=== PATIENT | female | born 1955 | race Caucasian/White ===

== ENCOUNTER 2017-06-28 16:26 | Emergency (ER) | payer SELFPAY ==
[2017-06-28] MEDS ORDERED: NORCO 5/325 MG PO ONE (17:24)
--- NOTE | 2017-06-28 17:24 | ERPHSYRPT ---
- History of Present Illness Source: patient Exam Limitations: no limitations Patient Subjective Stated Complaint: patient states four weeks ago she passed out and came to the er. states they did cpr on her for 30 minutes. she then was transferred to [facility] and had a pacemaker put in. denies having a heart attack. for one week now has had mid back pain. is taking ibuprophen four times a day without relief. Triage Nursing Assessment: ambulated to room without difficulty. skin w/d, color normal, resp nonlabored. no edema noted. no injury noted to back and patient denies any injury a week ago. does state however that "i took a spill in my bathtub last night and don't know if that has anything to do with it". Timing/Duration: week(s) (1 week) Severity: moderate Modifying Factors: Improves With: movement. Worsens With: eating, immobilization, medication, rest, acetaminophen, ibuprofen, nothing Associated Symptoms: other (pain posterior backthoracic region for one week), No nausea, No vomiting, No abdominal pain, No shortness of breath, No heartburn , No diaphoresis, No cough, No chills, No chest pain, No fever, No headaches, No loss of appetite, No malaise, No rash, No syncope, No seizure, No weakness Hx Tetanus, Diphtheria Vaccination/Date Given: (2015) Hx Influenza Vaccination/Date Given: No Hx Pneumococcal Vaccination/Date Given: Yes Immunizations Up to Date: No <SHAHLA HAYS - Last Filed: 06/28/17 19:05> <ROE REICH - Last Filed: 06/28/17 20:18> - History of Present Illness Time Seen by Provider: 06/28/17 17:12 Physician History: This is a 62-year-old white female who arrives with complaint of pain in her back overlying the thoracic region overlying the vertebral column symptoms going on for a week worse with movement worse with deep breathing described as a sharp pain; Patient does state that 4 weeks ago she was in [place] in the apparently had to have CPR for 30 minutes and had a pacemaker put in she states she did not have an MO; She states she is not on any pain medicine she denies any chest pain. Past medical history includes migraines, diabetes type 2, pulmonary embolism, arrhythmia, high blood pressure, gallbladder disease, ulcers, abnormal uterine bleeding, arthritis, lupus. Past surgical history includes brain tumor removed, pacer, cholecystectomy, hysterectomy, right knee replaced, [place] filter. (SHAHLA HAYS) Allergies/Adverse Reactions: cephalexin [From Keflex] Allergy (Verified 06/28/17 16:45) codeine Allergy (Verified 06/28/17 16:45) methocarbamol [From Robaxin] Allergy (Verified 06/28/17 16:45) morphine Allergy (Verified 06/28/17 16:45) promethazine [From Phenergan] Allergy (Verified 06/28/17 16:45) tramadol Allergy (Verified 06/28/17 16:45) Home Medications: Insulin Aspart [Novolog Flexpen] 0 unit SQ UD 06/28/17 [History] Insulin Glargine,Hum.rec.anlog [Lantus] 12 unit SQ BID 06/28/17 [History] Metoprolol Succinate 25 mg Xl* [Toprol-Xl 25MG Tablets] 25 mg PO DAILY [History] - Review of Systems Constitutional: No Fever, No Chills Eyes: No Symptoms Ears, Nose, & Throat: No Symptoms Respiratory: No Cough, No Dyspnea Cardiac: No Chest Pain, No Edema, No Syncope Abdominal/Gastrointestinal: No Abdominal Pain, No Nausea, No Vomiting, No Diarrhea Genitourinary Symptoms: No Dysuria Musculoskeletal: Back Pain (pain thoracic region overlying the vertebral column for one week worse with movement and breathing), No Arthralgias, No Neck Pain, No Deformity, No Fall, No Injury, No Joint Redness, No Joint Pain, No Joint Swelling, No Myalgias Skin: No Rash Neurological: No Dizziness, No Focal Weakness, No Sensory Changes Psychological: No Symptoms Endocrine: No Symptoms All Other Systems: Reviewed and Negative <SHAHLA HAYS - Last Filed: 06/28/17 19:05> - Past Medical History Pertinent Past Medical History: Yes Neurological History: Migraines Cardiac History: Arrhythmia, Hypertension Respiratory History: Pulmonary Embolism Endocrine Medical History: Diabetes Type II Musculoskeletal History: Arthritis, Other GI Medical History: Gallbladder Disease, Ulcer Female Reproductive Disorders: Abnormal Uterine Bleeding - Past Surgical History Past Surgical History: Yes Neuro Surgical History: Neurological Surgery Cardiac: Pacemaker Gastrointestinal: Cholecystectomy Musculoskeletal: Orthopedic Surgery Female Surgical History: Hysterectomy Other Surgical History: right knee replaced, tumor removed from brain, [place] filter before knee replacement as a precaution. - Social History Smoking Status: Former smoker Exposure to second hand smoke: No Drug Use: none Patient Lives Alone: No <LISSHAHLA SHERRY - Last Filed: 06/28/17 19:05> - Physical Exam General Appearance: no apparent distress, alert Eye Exam: PERRL/EOMI, eyes nml inspection Ears, Nose, Throat Exam: normal ENT inspection, TMs normal, pharynx normal, moist mucous membranes Neck Exam: normal inspection, non-tender, supple, full range of motion Respiratory Exam: normal breath sounds, lungs clear, No respiratory distress Cardiovascular Exam: regular rate/rhythm, normal heart sounds, normal peripheral pulses Gastrointestinal/Abdomen Exam: soft, normal bowel sounds, No tenderness, No mass Back Exam: other (back is tender with palpation thoracic region overlying the vertebral column) Extremity Exam: normal inspection, normal range of motion, pelvis stable Neurologic Exam: alert, oriented x 3, cooperative, normal mood/affect, nml cerebellar function, nml station & gait, sensation nml, No motor deficits Skin Exam: normal color, warm, dry, No rash Lymphatic Exam: No adenopathy SpO2 Interpretation: normal (98%) SpO2: 98 Oxygen Delivery: Room Air <SHAHLA HAYS - Last Filed: 06/28/17 19:05> - Nursing Vital Signs Nursing Vital Signs: Initial Vital Signs Temperature 98 F 06/28/17 16:34 Pulse Rate 100 H 06/28/17 16:34 Respiratory Rate 16 06/28/17 16:34 Blood Pressure 155/84 06/28/17 16:34 O2 Sat by Pulse Oximetry 98 06/28/17 16:34 Pain Scale Pain Intensity [] 8 Pain Intensity 7 - Course Nursing assessment & vital signs reviewed: Yes EKG Interpreted by Me: RATE (98 bpm), Sinus Rhythm, NORMAL AXIS, Other (EKG: Sinus rhythm, 90 bpm, normal axis, incomplete right bundle-branch block, , no acute ST or T wave changes noted, no old EKG for comparison) - Radiology Exams Chest X-ray Interpretation: Interpreted by me, Negative, No Fracture, No Pneumonia, No Pneumothorax, Other (cxr: no pneumonia or pneumothorax, pacer in place, no acute bony abnormalities) <SHAHLA HAYS - Last Filed: 06/28/17 19:05> Ordered Tests: Active Orders 24 hr Category Date Time Status EKG-ER Only STAT Care 06/28/17 17:19 Active IV Insertion STAT Care 06/28/17 17:19 Active CHEST 2 VIEWS (PA AND LAT) Stat Exams 06/28/17 17:19 Taken CHEST WITH CONTRAST [CT] Stat Exams 06/28/17 18:39 Taken CBC W DIFF Stat Lab 06/28/17 17:30 Completed CMP Stat Lab 06/28/17 17:30 Completed D-DIMER QUANTITATION Stat Lab 06/28/17 17:30 Completed TROPONIN Q3H Lab 06/28/17 17:31 Completed TROPONIN Q3H Lab 06/28/17 20:30 Ordered TROPONIN Q3H Lab 06/28/17 23:30 Ordered TROPONIN Q3H Lab 06/29/17 01:30 Ordered TROPONIN Q3H Lab 06/29/17 04:30 Ordered Medication Summary Discontinued Medications Generic Name Dose Route Start Last Admin Trade Name Freq PRN Reason Stop Dose Admin Hydrocodone Bitart/Acetaminophen 1 tab 06/28/17 17:24 06/28/17 17:34 [place] 5/325 Mg PO 06/28/17 17:25 1 tab STAT ONE Administration Hydrocodone Bitart/Acetaminophen Confirm 06/28/17 17:34 [place] 5/325 Mg Administered 06/28/17 17:35 Dose 1 tab .ROUTE .STK-MED ONE Hydrocodone Bitart/Acetaminophen Confirm 06/28/17 19:45 [place] 5/325 Mg Administered 06/28/17 19:46 Dose 1 tab .ROUTE .STK-MED ONE Ketorolac Tromethamine 30 mg 06/28/17 19:38 06/28/17 19:57 Toradol 30 Mg Injection IV 06/28/17 19:39 30 mg STAT ONE Administration Ketorolac Tromethamine Confirm 06/28/17 19:53 Toradol 30 Mg Injection Administered 06/28/17 19:54 Dose 30 mg .ROUTE .STK-MED ONE Lab/Rad Data: Laboratory Result Diagrams 06/28/17 17:30 06/28/17 17:30 Laboratory Results 06/28/17 06/28/17 06/28/17 Range/Units 17:31 17:30 17:30 WBC (4.0-10.5) K/mm3 RBC (4.1-5.4) M/mm3 Hgb (12.0-16.0) gm/dl Hct (35-47) % MCV (78-100) fl MCH (26-32) pg MCHC (32-36) g/dl RDW (11.5-14.0) % Plt Count (150-450) K/mm3 MPV (6-9.5) fl Gran % (36.0-66.0) % Lymphocytes % (24.0-44.0) % Monocytes % (0.0-12.0) % Eosinophils % (0.00-5.0) % Basophils % (0.0-0.4) % Basophils # (0-0.4) D-Dimer 635 H* (0-500) ng/mL Sodium 137 (136-145) mEq/L Potassium 3.9 (3.5-5.1) mEq/L Chloride 103 (98-107) mEq/L Carbon Dioxide 26.6 (21-32) mEq/L Anion Gap 11.7 (5-15) MEQ/L BUN 13 (9-20) mg/dL Creatinine 0.67 (0.55-1.30) mg/dl Estimated GFR > 60 ML/MIN Glucose 59 L (70-110) MG/DL Calcium 8.8 (8.5-10.1) mg/dL Total Bilirubin 0.20 (0.2-1.0) mg/dL AST 16 (15-37) U/L ALT 19 (12-78) U/L Alkaline Phosphatase 124 H (46-116) U/L Troponin I < 0.017 (0.000-0.056) ng/ml Serum Total Protein 6.6 (6.4-8.2) gm/dL Albumin 3.6 (3.4-5.0) g/dL 06/28/17 Range/Units 17:30 WBC 6.9 (4.0-10.5) K/mm3 RBC 3.68 L (4.1-5.4) M/mm3 Hgb 10.3 L (12.0-16.0) gm/dl Hct 31.9 L (35-47) % MCV 86.7 (78-100) fl MCH 27.9 (26-32) pg MCHC 32.3 (32-36) g/dl RDW 12.8 (11.5-14.0) % Plt Count 215 (150-450) K/mm3 MPV 9.7 H (6-9.5) fl Gran % 66.5 H (36.0-66.0) % Lymphocytes % 23.2 L (24.0-44.0) % Monocytes % 8.6 (0.0-12.0) % Eosinophils % 1.4 (0.00-5.0) % Basophils % 0.3 (0.0-0.4) % Basophils # 0.02 (0-0.4) D-Dimer (0-500) ng/mL Sodium (136-145) mEq/L Potassium (3.5-5.1) mEq/L Chloride (98-107) mEq/L Carbon Dioxide (21-32) mEq/L Anion Gap (5-15) MEQ/L BUN (9-20) mg/dL Creatinine (0.55-1.30) mg/dl Estimated GFR ML/MIN Glucose (70-110) MG/DL Calcium (8.5-10.1) mg/dL Total Bilirubin (0.2-1.0) mg/dL AST (15-37) U/L ALT (12-78) U/L Alkaline Phosphatase (46-116) U/L Troponin I (0.000-0.056) ng/ml Serum Total Protein (6.4-8.2) gm/dL Albumin (3.4-5.0) g/dL - Progress Progress: improved <SHAHLA HAYS - Last Filed: 06/28/17 19:05> - Progress Progress: improved, pain not gone completely Counseled pt/family regarding: lab results, diagnosis, need for follow-up, rad results <ORE REICH - Last Filed: 06/28/17 20:18> - Progress Progress Note: 06/28/17 19:04 Awaiting CTA ches this this is ordered because of increased d-dimer pain in the back with breathing Patient appears to be stable Case is discussed with Dr. Génesis Reich will assume care of this patient secondary to shift change. ( SHAHLA HAYS) 06/28/17 20:03 CT chest to rule out pulmonary embolism is negative. Patient has old broken ribs due to previous CPR. Patient is feeling much better after Toradol. CT results informed the patient and her . (ROE REICH) <LISSHAHLA BERNALLEY - Last Filed: 06/28/17 19:05> - Departure Time of Disposition: 20:04 Departure Disposition: Home Critical Care Time: Yes Critical Care Time(excluding separately billable procedures): 30-74 minutes <ROE REICH - Last Filed: 06/28/17 20:18> - Departure Clinical Impression: Midline back pain Qualifiers: Back pain location: thoracic back pain Chronicity: unspecified Qualified Code(s ): M54.6 - Pain in thoracic spine Condition: Stable Referrals: DOCTOR,NO FAMILY [Primary Care Provider] - Additional Instructions: Please follow the instructions given to you. Please take your medication as prescribed if given. If symptoms recur or get worse, come back to the emergency room if you cannot reach your primary care physician, or call your primary care physician for an appointment. Again if your symptoms get worse, come back to the emergency room. Thanks for visiting emergency room, and let us take care of you. Prescriptions: Ketorolac Tromethamine [Toradol] 10 mg PO TID #15 tablet
[2017-06-28 17:34] LABS: BASOPHIL % 0.3 % (0.0-0.4); Eosinophil % 1.4 % (0.00-5.0); Granulocytes % 66.5 % (36.0-66.0); Lymphocytes % 23.2 % (24.0-44.0); Mean Cell Volume 86.7 fl (78-100); Mean Platelet Volume 9.7 fl (6-9.5); Monocytes % 8.6 % (0.0-12.0); Platelet Count 215 K/mm3 (150-450); Red Blood Count 3.68 M/mm3 (4.1-5.4); Red Cell Distribution Width 12.8 % (11.5-14.0); White Blood Count 6.9 K/mm3 (4.0-10.5)
[2017-06-28] MEDS ORDERED: NORCO 5/325 MG ONE ×2 (17:34→19:45)
[2017-06-28 17:36] LABS: Mean Corpuscular Hemoglobin 27.9 pg (26-32)
[2017-06-28 17:55] LABS: ALBUMIN 3.6 g/dL (3.4-5.0); ALKALINE PHOSPHATASE 124 U/L (46-116); ANION GAP 11.7 MEQ/L (5-15); BLOOD UREA NITROGEN 13 mg/dL (9-20); CHLORIDE 103 mEq/L (98-107); Carbon Dioxide 26.6 mEq/L (21-32); Glucose 59 MG/DL (70-110); Potassium 3.9 mEq/L (3.5-5.1); SGOT/AST 16 U/L (15-37); SGPT/ALT 19 U/L (12-78); SODIUM 137 mEq/L (136-145); Total Protein 6.6 gm/dL (6.4-8.2)
[2017-06-28 18:23] VITALS: O2SAT 98
[2017-06-28] MEDS ORDERED: TORAdol 30 mg Injection IV ONE (19:38)
[2017-06-28] MEDS ORDERED: TORAdol 30 mg Injection ONE (19:53)
[2017-06-28 20:02] VITALS: BP 136/75; PULSE 68
--- NOTE | 2017-06-28 22:21 | XRAY ---
Indication: Back pain. Comparison: None PA/lateral chest demonstrates normal heart and lungs with right-sided dual-lead pacemaker. Bony thorax intact. Impression: Nonacute chest.
--- NOTE | 2017-06-28 22:21 | XRAY ---
Indication: Pain with breathing. Back pain. Elevated d-dimer. Multiple contiguous axial images obtained through the chest using 80 cc SUV 370 contrast and PE protocol. Comparison: None. There is satisfactory opacification of the pulmonary arteries to include the lobar and segmental branches. No filling defect or pulmonary embolus. Heart is not enlarged with a right-sided pacemaker. Aorta is normal in course and caliber with minimal calcifications. 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 No pathologic mediastinal/hilar lymphadenopathy. Small hiatal hernia. Lungs inflated and clear. Bony thorax intact with multiple healing bilateral rib fractures. Limited upper abdomen demonstrates previous gastric bypass surgery and cholecystectomy. Impression: 1. Negative for pulmonary embolus. 2. No acute cardiopulmonary abnormalities. 3. Small hiatal hernia. Comment: Preliminary interpretation was made by [facility]. No discrepancy. CTDI 21.59
== END 2017-06-28 20:27 | disposition home or self-care (01) ==
LOC: ED 16:26
DX: M54.6 Pain in thoracic spine (principal); E11.9 Type 2 diabetes mellitus without complications; I10 Essential (primary) hypertension; Z86.711 Personal history of pulmonary embolism; Z79.4 Long term (current) use of insulin
CPT/HCPCS: 36000; 36415; 71020; 71260; 80053; 82962; 84484; 85025; 85379; 93005; 96375; 99284; J1885; A9270-GY